=== PATIENT | female | born 1940 | race Caucasian/White ===

== ENCOUNTER 2018-07-08 16:02 | Outpatient (CLI) | payer MEDICARE, OTHER | END 2018-07-08 23:59 | disposition home or self-care (01) | LOC: XRAY 16:02 | DX: J98.11 Atelectasis (principal); I51.7 Cardiomegaly; R91.8 Other nonspecific abnormal finding of lung field | CPT/HCPCS: 71046 ==

== ENCOUNTER 2019-10-24 13:15 | Emergency (ER) | payer MEDICARE, OTHER ==
[~2019-10-24] VITALS: Ht 172.7 cm; Wt 88.5 kg
[2019-10-24] MEDS ORDERED: HYDROCODONE/APAP 10-325 MG TABLET PO ONE (13:30)
[2019-10-24] MEDS ORDERED: HYDROCODONE/APAP 10-325 MG TABLET ONE (13:32)
--- NOTE | 2019-10-24 16:30 | NUR ---
Patient discharged to home in stable conditon. Written and verbal after care instructions given. Patient verbalizes understanding of instructions.pt using own cane. pt accompanied by family members
[2019-10-24 16:31] VITALS: BP 149/81
== END 2019-10-24 16:32 | disposition home or self-care (01) ==
LOC: ER 13:15
DX: M54.5 Low back pain (principal); M79.602 Pain in left arm; E78.5 Hyperlipidemia, unspecified; W19.XXXA Unspecified fall, initial encounter; Y93.89 Activity, other specified; Y92.89 Other specified places as the place of occurrence of the external cause; Y99.8 Other external cause status
CPT/HCPCS: 72192; 73060; A4663